=== PATIENT | female | born 1975 | race Caucasian/White ===

== ENCOUNTER 2023-08-24 14:34 | Outpatient (AMB) | payer OTHER, SELFPAY ==
--- NOTE | 2023-08-24 14:52 | MHC.OFFVIS ---
Vital Signs 08/24/23 14:54 Height 5 ft 3 in Weight 149 lb 7.574 oz BMI 26.5 BP 136/75 Blood Pressure Location Lt brachial Position Sitting Pulse 69 Intake Visit Reasons: Colonoscopy screening Intake Note: New patient in office today for colonoscopy screening. CC:Patient underwent colonoscopy when she was 22 y/o due to IBS and constipation but everything was normal per PT. She states she has IBS and she usually has a normal BM every other day. Medical Office Receptionist Required: No Accompanied by: Self / Same As Patient Allergies Sulfa (Sulfonamide Antibiotics) Allergy (Severe, Verified 08/24/23 14:58) Anaphylaxis sulfamethoxazole [From Bactrim] Allergy (Severe, Verified 08/24/23 14:58) Anaphylaxis trimethoprim [From Bactrim] Allergy (Severe, Verified 08/24/23 14:58) Anaphylaxis acetaminophen [From Percocet] Adverse Reaction (Severe, Verified 08/24/23 14:58) Itching oxycodone [From Percocet] Adverse Reaction (Severe, Verified 08/24/23 14:58) Itching HPI HPI Colonoscopy screening: Details: 48 year old? female with past medical history of IBS, and anxiety is here today for pre colonoscopy screening.? Patient was sent to us by her PCP.?? Patient reports she had colonoscopy when she was 22. Patient has been dealing with abdominal cramping and pain for very long time since she was a child. History of constipation. Colonoscopy did not show any polyps. Patient was seen by GI at [facility] at the time when she had colonoscopy and was told that she has IBS.? Denies any personal or family history of gastrointestinal disease, colon polyps, or colorectal cancer.? Negative for history of sleep apne, however patient does reports to be snoring at night. Denies any history of cardiac, renal, pulmonary, or hepatic disease.?? No history of infectious? diseases like hepatitis A, B, C, HIV or tuberculosis.? Patient is not on any anticoagulation therapy. [facility], [facility] Medical History (Updated 08/24/23 @ 17:09 by Angle Duron JANITORIAL ACCOUNT MANAGER-) IBS (irritable bowel syndrome) Surgical History H/O section H/O colonoscopy Family History Maternal Grandmother Cancer of spine Lung cancer Paternal Aunt Breast cancer Social History Alcohol intake: never Patient Tobacco Use Status: Former Tobacco user Quit Date: smoked from 14 y/o to 20 y/o Review of Systems Const Denies weight gain and Denies weight loss ENT Reports no additional complaints, Denies dysphagia and Denies odynophagia Card Reports no additional complaints Resp Reports no additional complaints GI Reports abdominal pain (Cramping), Denies belching, Denies melena, Denies bloating, Reports constipation, Denies dysphagia, Denies excessive flatus, Denies dyspepsia, Denies heartburn, Denies diarrhea, Reports loose stools, Denies nausea, Denies odynophagia and Denies vomiting Reports no additional complaints Musc Reports no additional complaints Neuro Reports no additional complaints Psych Reports no additional complaints Endo Reports no additional complaints Physical Exam Vital Signs: Last Vital Signs Pulse 69 08/24/23 14:54 BP 136/75 08/24/23 14:54 BMI result Body Mass Index 26.5 Const General: healthy appearing, no acute distress and well developed Nutritional Appearance: well nourished Orientation/consciousness: patient oriented x3 Resp Effort & Inspection: normal respiratory effort, able to speak in complete sentences, no tracheal deviation and symmetric chest movement Auscultation: clear to auscultation bilaterally Cardio Rate: regular rate GI Inspection: Yes normal to inspection and No distended Palpation (GI): Soft to palpation, not firm, nontender and No hepatosplenomegaly present Auscultation: normal bowel sounds General: Yes no CVA tenderness Back/Spine/Pelvis Back: no CVA tenderness Skin General skin exam: elasticity normal, turgor normal and dry skin Neuro General: patient oriented x3 Psych Appearance: grossly normal Mental Status: mental status grossly normal Assessment & Plan Assessment & Plan (1) Screen for colon cancer: Code(s): Z12.11 - Encounter for screening for malignant neoplasm of colon (2) IBS (irritable bowel syndrome): Code(s): K58.9 - Irritable bowel syndrome without diarrhea Qualifiers: Irritable bowel syndrome type: with both diarrhea and constipation Qualified Code(s): K58.2 - Mixed irritable bowel syndrome (3) Hemorrhoids without complication: Code(s): K64.9 - Unspecified hemorrhoids Plan Patient denies any cardiac or respiratory symptoms. ?Patient had her 1st colonoscopy at the age of 22 for IBS and had no polyps. Procedure was not finished as patient had colonic spasm. Patient reports that she gets very nauseous from anesthesia. Last time she was under anesthesia was in 2009 for laparoscopic surgery. States that she was given scopolamine patch.? Denies any history of sleep apnea.? No history infectious diseases in the past or present.? Patient reports occasional dyspepsia in his asking if she can be tested for gluten intolerance and allergy test. Postprandial abdominal bloating occasional constipation. Patient reports that she has been diagnosed with hemorrhoids after her . Occasional rectal discomfort with constipation. Will send patient cream and suppository. Sitz baths recommended. Discussed with patient low FODMAP diet. List of food recommended as well as list of food to avoid given to patient. Patient is going to start probiotic. States that she tried and felt better after taking it. Not on any anticoagulation therapy.? No family or personal history of colon cancer or polyps.? Patient denies melena, hematochezia, unintentional weight loss or ribbon like stools.? Discussed at length the pre-procedure,? prep, diet & medications as well as what to expect prior, during and after the procedure.?? Stressed the importance of good bowel prep. ?Recommended the use of Vaseline or Calmoseptine OTC & baby wipes with bowel movements to promote comfort.? ?Patient verbalizes understanding and agrees to plan of care.? She was given the opportunity to ask questions and all questions answered.? We will see her after the procedure.? Orders: Orders Rast Allergen Today K21.9 - Gastro-esophageal reflux disease without esophagitis Transglutaminase Ab IgG Today R10.9 - Unspecified abdominal pain Transglutaminase IgA Today R10.9 - Unspecified abdominal pain Medications: New polyethylene glycol 3350 (Miralax) As directed by gastroenterology department at [facility] 238 grams PO ONCE 238 grams 0RF Z12.11 - Encounter for screening for malignant neoplasm of colon hydrocortisone 2.5% (Proctosol HC) 1 appl [place] BID-QID PRN 30 grams 2RF hemorrhoids K64.9 - Unspecified hemorrhoids bisacodyl (Dulcolax (bisacodyl)) Start taking 2 tablet every night 7 days before the procedure and 1 day before procedure take 4 tablets at noon time followed by MiraLax prep 10 mg (2 x 5 mg) PO BEDTIME 16 tabs 0RF Z12.11 - Encounter for screening for malignant neoplasm of colon hydrocortisone acetate (Anucort-HC) 25 mg [place] BID 24 ea 2RF Coding Level of Care Code New Pt Level 4 (21721) Diagnoses Screen for colon cancer Z12.11 Irritable bowel syndrome with both constipation and diarrhea K58.2 Irritable bowel syndrome type: with both diarrhea and constipation Hemorrhoids without complication K64.9 Time Spent (min) 45 Comment 30 minutes spent with patient and additional 15 minutes spent reviewing her records
[2023-08-24 14:54] VITALS: BP 136/75; PULSE 69; BMI 26.5
== END 2023-08-24 16:17 | disposition home or self-care (01) ==
PROVIDERS: PCP Internal Medicine; Visit Provider Nurse Practitioner Family
DX: K58.2 Mixed irritable bowel syndrome (principal); K64.9 Unspecified hemorrhoids; Z12.11 Encounter for screening for malignant neoplasm of colon
CPT/HCPCS: 99204

== ENCOUNTER → 2023-08-24 14:34 | Outpatient (BNVA) | payer OTHER, SELFPAY | PROVIDERS: PCP Internal Medicine; Visit Provider Nurse Practitioner Family ==

== ENCOUNTER 2024-01-11 06:54 | Day surgery (SDC) | payer OTHER, SELFPAY ==
[2024-01-10 07:12] VITALS: BMI 26.4
[2024-01-11 07:17] VITALS: BP 127/79; PULSE 85; RESP 18; TEMP 36.9; O2SAT 98; BMI 26.7
[2024-01-11 07:36] LABS: UPreg QC Valid YES; Urine Pregnancy NEGATIVE (NEGATIVE)
[2024-01-11] MEDS: Lactated Ringers 1,000 ML 50 ML IVCONT (07:43)
--- NOTE | 2024-01-11 08:04 | MHC.SHP ---
Pre-Procedural Eval Section A - 24 Hr Update-Section A only Date of Service: 01/11/24 Section B - Complete if H&P > 30 days Chief Complaint: Encounter for screening for malignant neoplasm of Relevant Family History (Specify if Yes): No Relevant Social History: None Present Medications: see Short Stay Collaborative assessment Medical History: Significant History (IBS,anxiety) History of Previous Operations: Relevant previous surgery/procedure and date(s) (H/O section H/O colonoscopy) Allergies: Allergies Allergy/AdvReac Type Severity Reaction Status Date / Time Sulfa (Sulfonamide Allergy Severe Anaphylaxis Verified 08/24/23 14:58 Antibiotics) sulfamethoxazole Allergy Severe Anaphylaxis Verified 08/24/23 14:58 [From Bactrim] trimethoprim [From Bactrim] Allergy Severe Anaphylaxis Verified 08/24/23 14:58 acetaminophen [From Percocet] AdvReac Severe Itching Verified 08/24/23 14:58 oxycodone [From Percocet] AdvReac Severe Itching Verified 08/24/23 14:58 Review of Systems Sugical H&P ROS: Negative: Constitution, Cardiovascular, Respiratory, Neurological, Psychiatric, Hem-Onc, Allergic/Immunologic, Gastrointestinal, Genitourinary, Musculoskeletal, Integumentary, Endocrine and Eyes/Ears/Nose/Throat Exam Surgical H&P Exam: Normal: HEENT, Normal: Heart, Normal: Lungs, Normal: Extremities, Normal: Abdomen, Normal: Skin and Normal: Neurological Plan Diagnosis/Plan: Unchanged I have reviewed the history and physical and performed a pertinent physical examination on my patient. No changes have occurred unless specified. Time Spent With Patient Time: Total time managing care of this patient today ____ minutes.
--- NOTE | 2024-01-11 08:16 | HO.ANESPROP2 ---
HPI - Anesthesia Eval Consult details Narrative: 48 yo F presenting for colonoscopy [facility] Past Medical History Medical History (Updated 08/24/23 @ 17:09 by Angle Duron [facility]) IBS (irritable bowel syndrome) Family History Family History Maternal Grandmother Cancer of spine Lung cancer Paternal Aunt Breast cancer Family history of problems with anesthesia: No Surgical History Surgical History H/O section H/O colonoscopy History of Problems with Anesthesia: No Social History Social History Alcohol intake: never Patient Tobacco Use Status: Former Tobacco user Have you been hit, kicked, punched, or otherwise hurt by someone within the past year? If so, by whom?: No Are you DNR?: No Advance Directives: No Advance Directives Information Provided: Yes FDLMP: bleeding now Meds Allergies Allergy/AdvReac Type Severity Reaction Status Date / Time Sulfa (Sulfonamide Allergy Severe Anaphylaxis Verified 08/24/23 14:58 Antibiotics) sulfamethoxazole Allergy Severe Anaphylaxis Verified 08/24/23 14:58 [From Bactrim] trimethoprim [From Bactrim] Allergy Severe Anaphylaxis Verified 08/24/23 14:58 acetaminophen [From Percocet] AdvReac Severe Itching Verified 08/24/23 14:58 oxycodone [From Percocet] AdvReac Severe Itching Verified 08/24/23 14:58 Active Medications: Current Medications Lactated Ringer's (Lr) 1,000 mls @ 50 mls/hr IVCONT .Q20H TYLER Last Admin: 01/11/24 07:43 Dose: 50 mls/hr Naloxone HCl (Naloxone Hcl 0.4 Mg/Ml Vial) 0.04 mg IVPUSH Q5M PRN PRN Reason: Excessive sedation or RR < 8 Home Medications ?Medication ?Instructions ?Recorded ?Confirmed ?Last Taken ?Type No Known Home Meds 01/11/24 01/11/24 Unknown History Exam Exam Date and Time: 01/11/24 0815 Height,Weight and Vital Signs: Height 5 ft 3 in Weight 68.4 kg Last Vital Signs Temp 98.5 F 01/11/24 07:17 Pulse 85 01/11/24 07:17 Resp 18 01/11/24 07:17 BP 127/79 01/11/24 07:17 Pulse Ox 98 01/11/24 07:17 O2 Del Method Room Air 01/11/24 07:17 Pertinent Lab Results Pertinent Lab Results: Laboratory Tests 01/11/24 07:10 Urine Test NEGATIVE Airway Mallampati Class: I TM Dist: >3cm Neck ROM: Full Loose/Missing/Broken Teeth: No (patient denies any loose or broken teeth) Heart: S1S2 Lungs: CTAB Assessment and Plan Assessment Anesthesia Assessment: Anesthesia Plan Discussed and Chart Reviewed Final Anesthetic Review Family History of Problems with Anesthesia: No History of Problems with Anesthesia: No NPO: Yes ASA Class: I Final Preanesthetic Review: No Changes in Pt Med Stat, Meds/Allgs Chart Reviewed, Consent Obtained/Reviewed and Anes Risks/Benef Reviewed Patient Risk: Low Procedure Risk: Low Anesthetic Plan Anesthetic Plan: MAC: and Agree w/ Assess. and Plan Disposition: Standard PACU
--- NOTE | 2024-01-11 08:37 | HO.OPN-COLON ---
Colonoscopy Operative Note Operative Note Date of Service: 01/11/24 Narrative: Operative Information Procedure Description: Colonoscopy Indication: screeening Anesthesia: MAC COLONOSCOPY Instrument: Olympus variable stiffness pediatric scope 190L Colonoscopy Monitoring: Vital signs and clinical assessment, continuous EKG monitoring, Pulse oximetry, Carbon Dioxide monitoring and blood pressure monitoring were done throughout the procedure. Colon withdrawal time was 10 minutes. Procedure: The patient was placed in the left lateral decubitis position and pre-procedure medications were administered. After a digital rectal examination of the ano-rectum, the video colonoscope was inserted into the rectum and advanced through the colon to the cecum/TI. The colonoscope was slowly withdrawn in a retrograde panoramic fashion and the colon mucosa was carefully examined including a retroflexed view of the rectum. Findings and interventions are described below. Procedure Difficulty: moderate Findings: Terminal Ileum-normal Cecum:normal right sided retroflexion- normal Ascending Colon: few diverticula seen Transverse Colon -normal Descending Colon:normal Sigmoid Colon: midl diverticulosis Rectum: Retroflexion with small to medium internal hemorrhoids seen, grade I, 3-4 mm sessile polyp removed with cold forceps Anorectum - normal Intervention: cold forceps Colon preparation: [place] Bowel Preparation Scale Right colon; 2 Transverse colon: 2 Left colon; 2 (0 = Unprepared colon segment with mucosa not seen due to solid stool that cannot be cleared. 1 = Portion of mucosa of the colon segment seen, but other areas of the colon segment not well seen due to staining, residual stool and/or opaque liquid. 2 = Minor amount of residual staining, small fragments of stool and/or opaque liquid, but mucosa of colon segment seen well. 3 = Entire mucosa of colon segment seen well with no residual staining, small fragments of stool or opaque liquid) Impression and Post Procedure Diagnosis: diverticulosis colon polyp internal hemorrhoids Plan: High fiber diet leaflet Avoid straining at stool, epsom salts and sitz bath, anusol supps or cream Repeat Colonoscopy in 5-6 years if adenomatous polyp, 10 yrs if hyperplastic or earlier if clinically indicated Above findings were reviewed with the patient and relevant handouts were provided if indicated.
[2024-01-11 08:40] VITALS: BP 97/49; PULSE 62; RESP 16; TEMP 36.6; O2SAT 98
[2024-01-11 08:58] VITALS: BP 101/57; PULSE 75; RESP 17; TEMP 36.1; O2SAT 99
== END 2024-01-11 09:20 | disposition home or self-care (01) ==
PROVIDERS: Anesthesiology; PCP Internal Medicine; Visit Provider Internal Medicine Gastroenterology
PROC: 0DJD8ZZ Inspection of Lower Intestinal Tract, Via Natural or Artificial Opening Endoscopic (ICD-10-PCS; CPT 45378; principal; 2024-01-11 08:10)
DX: Z12.11 Encounter for screening for malignant neoplasm of colon (principal); K62.1 Rectal polyp; K57.30 Diverticulosis of large intestine without perforation or abscess without bleeding; K64.0 First degree hemorrhoids; K58.2 Mixed irritable bowel syndrome; K21.9 Gastro-esophageal reflux disease without esophagitis; F41.9 Anxiety disorder, unspecified; Z88.2 Allergy status to sulfonamides; Z88.5 Allergy status to narcotic agent; Z87.891 Personal history of nicotine dependence
CPT/HCPCS: 45380; 81025; 88305; J2704

== ENCOUNTER → 2024-01-11 06:54 | Outpatient (BNV) | payer OTHER, SELFPAY | PROVIDERS: PCP Internal Medicine; Visit Provider Internal Medicine Gastroenterology | DX: Z12.11 Encounter for screening for malignant neoplasm of colon (principal); D12.8 Benign neoplasm of rectum; K57.30 Diverticulosis of large intestine without perforation or abscess without bleeding | CPT/HCPCS: 45380 ==

== ENCOUNTER 2024-01-25 14:43 | Outpatient (AMB) | payer OTHER, SELFPAY ==
[2024-01-25 15:00] VITALS: BP 112/66; PULSE 80; O2SAT 99; BMI 26.2
--- NOTE | 2024-01-25 15:00 | MHC.OFFVIS ---
Vital Signs 01/25/24 15:00 Height 5 ft 3 in Weight 148 lb 2.41 oz BMI 26.2 BP 112/66 Blood Pressure Location Rt brachial Position Sitting Pulse 80 Pulse Source Pulse Oximeter Pulse Oximetry (%) 99 Oxygen Delivery Method Room Air Intake Visit Reasons: S/P screenning; Dr. Del Toro Intake Note: Meagan presents in office for a scheduled s/p FUV. CC; Pt reports that they are here to discuss the findings of their procedure. Pt denies any post op complications or new concerns. Hot Press Operator Required: No Allergies Sulfa (Sulfonamide Antibiotics) Allergy (Severe, Verified 01/25/24 15:00) Anaphylaxis sulfamethoxazole [From Bactrim] Allergy (Severe, Verified 01/25/24 15:00) Anaphylaxis trimethoprim [From Bactrim] Allergy (Severe, Verified 01/25/24 15:00) Anaphylaxis acetaminophen [From Percocet] Adverse Reaction (Severe, Verified 01/25/24 15:00) Itching oxycodone [From Percocet] Adverse Reaction (Severe, Verified 01/25/24 15:00) Itching HPI HPI S/P screenning; Dr. Del Toro: Details: LAST VISIT: Screen for colon cancer IBS (irritable bowel syndrome) Hemorrhoids without complication Plan Patient denies any cardiac or respiratory symptoms. ?Patient had her 1st colonoscopy at the age of 22 for IBS and had no polyps. Procedure was not finished as patient had colonic spasm. Patient reports that she gets very nauseous from anesthesia. Last time she was under anesthesia was in 2009 for laparoscopic surgery. States that she was given scopolamine patch.? Denies any history of sleep apnea.? No history infectious diseases in the past or present.? Patient reports occasional dyspepsia in his asking if she can be tested for gluten intolerance and allergy test. Postprandial abdominal bloating occasional constipation. Patient reports that she has been diagnosed with hemorrhoids after her . Occasional rectal discomfort with constipation. Will send patient cream and suppository. Sitz baths recommended. Discussed with patient low FODMAP diet. List of food recommended as well as list of food to avoid given to patient. Patient is going to start probiotic. States that she tried and felt better after taking it. Not on any anticoagulation therapy.? No family or personal history of colon cancer or polyps.? Patient denies melena, hematochezia, unintentional weight loss or ribbon like stools.? Discussed at length the pre-procedure,? prep, diet & medications as well as what to expect prior, during and after the procedure.?? Stressed the importance of good bowel prep. ?Recommended the use of Vaseline or Calmoseptine OTC & baby wipes with bowel movements to promote comfort.? ?Patient verbalizes understanding and agrees to plan of care.? She was given the opportunity to ask questions and all questions answered.? We will see her after the procedure.? Orders Orders Rast Allergen Today K21.9 Transglutaminase Ab IgG Today R10.9 Transglutaminase IgA Today R10.9 Medications New polyethylene glycol 3350 (Miralax) As directed by gastroenterology department at [facility] 238 grams PO ONCE 238 grams 0RF Z12.11 hydrocortisone 2.5% (Proctosol HC) 1 appl [place] BID-QID PRN 30 grams 2RF hemorrhoids K64.9 bisacodyl (Dulcolax (bisacodyl)) Start taking 2 tablet every night 7 days before the procedure and 1 day before procedure take 4 tablets at noon time followed by MiraLax prep 10 mg (2 x 5 mg) PO BEDTIME 16 tabs 0RF Z12.11 hydrocortisone acetate (Anucort-HC) 25 mg [place] BID 24 ea 2RF COLONOSCOPY: Findings: Terminal Ileum-normal Cecum:normal right sided retroflexion- normal Ascending Colon: few diverticula seen Transverse Colon -normal Descending Colon:normal Sigmoid Colon: midl diverticulosis Rectum: Retroflexion with small to medium internal hemorrhoids seen, grade I, 3-4 mm sessile polyp removed with cold forceps Anorectum - normal Intervention: cold forceps Colon preparation: [place] Bowel Preparation Scale Right colon; 2 Transverse colon: 2 Left colon; 2 (0 = Unprepared colon segment with mucosa not seen due to solid stool that cannot be cleared. 1 = Portion of mucosa of the colon segment seen, but other areas of the colon segment not well seen due to staining, residual stool and/or opaque liquid. 2 = Minor amount of residual staining, small fragments of stool and/or opaque liquid, but mucosa of colon segment seen well. 3 = Entire mucosa of colon segment seen well with no residual staining, small fragments of stool or opaque liquid) Impression and Post Procedure Diagnosis: diverticulosis colon polyp internal hemorrhoids Plan: High fiber diet leaflet Avoid straining at stool, epsom salts and sitz bath, anusol supps or cream Repeat Colonoscopy in 5-6 years if adenomatous polyp, 10 yrs if hyperplastic or earlier if clinically indicated TODAY'S VISIT: Patient is here today for follow-up and to discuss colonoscopy and biopsy results. Patient denies any ill effects from the prep, anesthesia or procedure itself. Patient reports that she has been feeling well since procedure. Occasional constipation. Hyperplastic polyp found and moderate diverticulosis with internal hemorrhoids. Patient denies melena, hematochezia. Denies any dyspepsia, dysphagia or odynophagia. Patient reports to be feeling fairly well. No known family history of CRC. [facility] Medical History IBS (irritable bowel syndrome) Surgical History H/O section H/O colonoscopy Family History Maternal Grandmother Cancer of spine Lung cancer Paternal Aunt Breast cancer Social History Alcohol intake: never Patient Tobacco Use Status: Former Tobacco user Review of Systems Const Denies weight gain and Denies weight loss ENT Reports no additional complaints, Denies dysphagia and Denies odynophagia Card Reports no additional complaints Resp Reports no additional complaints GI Denies abdominal pain, Denies belching, Denies melena, Denies bloating, Denies change in bowel habits, Reports constipation (Occasional), Denies dysphagia, Denies excessive flatus, Denies dyspepsia, Denies heartburn, Denies diarrhea, Denies loose stools, Denies nausea, Denies odynophagia and Denies vomiting Musc Reports no additional complaints Neuro Reports no additional complaints Psych Reports no additional complaints Endo Reports no additional complaints Physical Exam Vital Signs: Last Vital Signs Pulse 80 01/25/24 15:00 BP 112/66 01/25/24 15:00 Pulse Ox 99 01/25/24 15:00 Oxygen Delivery Method Room Air 01/25/24 15:00 BMI result Body Mass Index 26.2 Const General: healthy appearing, no acute distress and well developed Nutritional Appearance: well nourished Orientation/consciousness: patient oriented x3 Resp Effort & Inspection: normal respiratory effort, able to speak in complete sentences, no tracheal deviation and symmetric chest movement Auscultation: clear to auscultation bilaterally Cardio Rate: regular rate GI Inspection: Yes normal to inspection and No distended Palpation (GI): Soft to palpation, not firm, nontender and No hepatosplenomegaly present Auscultation: normal bowel sounds General: Yes no CVA tenderness Back/Spine/Pelvis Back: no CVA tenderness Skin General skin exam: elasticity normal, turgor normal and dry skin Neuro General: patient oriented x3 Psych Appearance: grossly normal Mental Status: mental status grossly normal Assessment & Plan Assessment & Plan (1) Status post colonoscopy: Code(s): Z98.890 - Other specified postprocedural states (2) IBS (irritable bowel syndrome): Code(s): K58.9 - Irritable bowel syndrome, unspecified Qualifiers: Irritable bowel syndrome type: without diarrhea Qualified Code(s): K58.9 - Irritable bowel syndrome, unspecified Plan Colonoscopy in 10 years, sooner if clinically necessary. Patient has no family history of CRC. Reports occasional symptoms of IBS with constipation. Patient reports that she drinks plenty fluids. Increase fluid intake and activity to promote better bowel motility. May take Dulcolax tablets on as needed basis. Patient will call our office if she will have any GI concerning. She is agreeable to this plan and verbalizes understanding of instructions. She was given the opportunity to ask questions and all questions answered. Thank you for allowing me to participate in her care Medications: New bisacodyl (Dulcolax (bisacodyl)) 10 mg (2 x 5 mg) PO BEDTIME 180 tabs 4RF Coding Level of Care Code Est Pt Level 3 (04399) Diagnoses Status post colonoscopy Z98.890 Irritable bowel syndrome without diarrhea K58.9 Irritable bowel syndrome type: without diarrhea Time Spent (min) 25 Comment 15 minutes spent with patient and additional 10 minutes spent reviewing her records
== END 2024-01-25 15:58 | disposition home or self-care (01) ==
PROVIDERS: PCP Internal Medicine; Visit Provider Nurse Practitioner Family
DX: Z98.890 Other specified postprocedural states (principal); K58.9 Irritable bowel syndrome, unspecified
CPT/HCPCS: 99213

== ENCOUNTER → 2024-01-25 14:43 | Outpatient (BNVA) | payer OTHER, SELFPAY | PROVIDERS: PCP Internal Medicine; Visit Provider Nurse Practitioner Family ==